=== PATIENT | male | born 1970 | race Two or more races ===

== ENCOUNTER 2017-02-07 12:38 | Emergency (ER) | payer MEDICAID, OTHER ==
[~2017-02-07] VITALS: Ht 154.9 cm; Wt 65.8 kg
[2017-02-07 13:03] VITALS: BP 135/90
== END 2017-02-07 14:01 | disposition home or self-care (01) ==
LOC: ER 12:38
DX: J01.10 Acute frontal sinusitis, unspecified (principal); F41.9 Anxiety disorder, unspecified; F17.210 Nicotine dependence, cigarettes, uncomplicated

== ENCOUNTER 2017-02-10 09:02 | Emergency (ER) | payer MEDICAID ==
[~2017-02-10] VITALS: Ht 154.9 cm; Wt 65.8 kg
[2017-02-10 10:16] VITALS: BP 122/87
[2017-02-10] MEDS ORDERED: diphenhdrAMINE HCL 50 MG/1 ML VL IM ONE (10:45)
== END 2017-02-10 11:01 | disposition home or self-care (01) ==
LOC: ER 09:02
DX: F41.1 Generalized anxiety disorder (principal); F17.210 Nicotine dependence, cigarettes, uncomplicated
CPT/HCPCS: 96372; 99284; J1200

== ENCOUNTER 2023-10-13 16:46 | Emergency (ER) | payer MEDICAID ==
[~2023-10-13] VITALS: Ht 157.5 cm; Wt 64.6 kg
[2023-10-13] MEDS: IBUPROFEN 800 MG TAB PO ONE (20:04)
[2023-10-13] MEDS ORDERED: ACET-1304 PO (20:07)
[2023-10-13] MEDS ORDERED: IBUP-1456 PO (20:07)
[2023-10-13 22:19] VITALS: BP 132/71; PULSE 54; RESP 18; TEMP 98.5; O2SAT 99
== END 2023-10-13 22:40 | disposition home or self-care (01) ==
LOC: ER 16:46
DX: S93.432A Sprain of tibiofibular ligament of left ankle, initial encounter (principal); F41.9 Anxiety disorder, unspecified; Z87.891 Personal history of nicotine dependence; Z79.899 Other long term (current) drug therapy; W11.XXXA Fall on and from ladder, initial encounter; Y93.89 Activity, other specified; Y92.89 Other specified places as the place of occurrence of the external cause; Y99.8 Other external cause status
CPT/HCPCS: 29515; 73610; 73630

== ENCOUNTER 2023-10-22 14:13 | Emergency (ER) | payer MEDICAID ==
[~2023-10-22] VITALS: Ht 157.5 cm; Wt 68.3 kg
[~2023-10-22 14:13] MED LIST: ACET-1304 PO; IBUP-1456 PO
[2023-10-22 16:41] VITALS: BP 115/76; PULSE 54; RESP 17; TEMP 98.7; O2SAT 98
== END 2023-10-22 16:44 | disposition home or self-care (01) ==
LOC: ER 14:13
DX: S93.439A Sprain of tibiofibular ligament of unspecified ankle, initial encounter (principal); F17.210 Nicotine dependence, cigarettes, uncomplicated; F41.9 Anxiety disorder, unspecified; X58.XXXA Exposure to other specified factors, initial encounter; Y93.89 Activity, other specified; Y92.89 Other specified places as the place of occurrence of the external cause; Y99.8 Other external cause status
CPT/HCPCS: 93005